=== PATIENT | female | born 1965 | race American Indian/Alaskan Native ===

== ENCOUNTER 2021-08-07 09:25 | Emergency (ER) | payer OTHER ==
[2021-08-07 09:36] VITALS: BP 123/69
--- NOTE | 2021-08-07 09:54 | Emergency Department Report ---
ED Chest Pain HPI - General Chief Complaint: Dizziness Stated Complaint: SHARP LT PAINS SHOULDER Time Seen by Provider: 08/07/21 09:31 Source: patient Mode of arrival: Ambulatory Limitations: No Limitations - History of Present Illness Initial Comments: CC: "My whole left side hurts." HPI: THis is a 56 yo female with hx of enlarged thyroid and stroke like episode in 2017 who presents with dizzness, left sided pain. Patient's symptoms began one week ago. She has pain at the left neck, left chest, left arm, left leg. She has intermittent squeezing chest pain. Moderate in severity. Episodes last several minutes. No assoication with exertion on eating. She has a knot at her left elbow. No trauma. No family hx of heart disease. She stopped smoking cigarettes one year ago. In [place] [id number], patient had right-sided weakness. She required rehabilitation in facility for [address] scan she did not have a stroke at that time. MD Complaint: chest pain -: Gradual, week(s) Onset: during rest (1 week) Pain Location: left chest Pain Radiation: LUE, neck Severity: moderate Quality: squeezing Consistency: intermittent Improves With: nothing Worsens With: nothing Treatments Prior to Arrival: none - Related Data Allergies Allergy/AdvReac Type Severity Reaction Status Date / Time No Known Allergies Allergy Unverified 11/26/13 13:00 Heart Score - HEART Score History: Slightly suspicious EKG: Normal Age: 45-65 Risk factors: 1-2 risk factors Troponin: < normal limit HEART Score: 2 - EKG Read Time Time EKG Completed: 10:10 EKG Read Time: 10:22 - Critical Actions Critical Actions: 0-3 pts:0.9-1.7%risk of adverse cardiac event.Candidate for discharge ED Review of Systems ROS: Stated complaint: SHARP LT PAINS SHOULDER Other details as noted in HPI Comment: All other systems reviewed and negative Constitutional: denies: chills, fever, malaise Cardiovascular: chest pain Gastrointestinal: denies: abdominal pain, nausea, vomiting Skin: lesions ED Past Medical Hx - Past Medical History Previous Medical History?: No - Surgical History Past Surgical History?: Yes Additional Surgical History: - Social History Smoking Status: Former Smoker Substance Use Type: Marijuana ED Physical Exam - General Limitations: No Limitations General appearance: alert, in no apparent distress - Head Head exam: Present: atraumatic, normocephalic - Eye Eye exam: Present: normal appearance - ENT ENT exam: Present: mucous membranes moist - Neck Neck exam: Present: normal inspection, full ROM - Respiratory Respiratory exam: Present: normal lung sounds bilaterally. Absent: respiratory distress, wheezes, rales, rhonchi, stridor - Cardiovascular Cardiovascular Exam: Present: regular rate, normal rhythm, normal heart sounds. Absent: systolic murmur, diastolic murmur, rubs, gallop - GI/Abdominal GI/Abdominal exam: Present: soft, normal bowel sounds. Absent: distended, tenderness, guarding, rebound - Extremities Exam Extremities exam: Present: normal inspection - Expanded Upper Extremity Exam Left Shoulder Exam: Present: normal inspection, full ROM Upper Arm exam: Present: normal inspection, full ROM Elbow exam: Present: full ROM, tenderness, other (hard nodular lesion 1.5 cm at the medial antecubital region left elbow). Absent: swelling, laceration, ecchymosis Forearm Wrist exam: Present: normal inspection, full ROM. Absent: tenderness, swelling Hand Wrist exam: Present: normal inspection, full ROM - Back Exam Back exam: Present: normal inspection - Neurological Exam Neurological exam: Present: alert, oriented X3 - Psychiatric Psychiatric exam: Present: normal affect, normal mood - Skin Skin exam: Present: warm, dry, intact, normal color. Absent: rash ED Course Vital Signs 08/07/21 09:31 Temperature 98.7 F Pulse Rate 73 Respiratory 16 Rate Blood Pressure 123/69 [Left] O2 Sat by Pulse 96 Oximetry ED Medical Decision Making - Lab Data Result diagrams: 08/07/21 10:04 08/07/21 10:04 - EKG Data -: EKG Interpreted by Fl EKG shows normal: sinus rhythm, axis, intervals, QRS complexes, ST-T waves Rate: normal - EKG Data Interpretation: normal EKG 08/07/21 09:54 EKG obtained 1010 EKG interpreted by sd Rate 65 bpm normal axis normal intervals no ST elevation nonischemic T wave pattern normal EKG 08/07/21 10:23 - Radiology Data Radiology results: report reviewed I reviewed radiology impressions: Radiographs of the elbow left 2 view: No significant abnormality of the left elbow, Chest radiograph 2 views: No acute findings - Medical Decision Making 1. Left-sided pain: Atypical for ACS. No indication of emergent conditions such as CVA, pulmonary embolism, dissection. Differential diagnosis includes fibromyalgia cervical lumbar radiculopathy. 2. skin Nodule: cyst possible Patient referred to internal medicine physician. Critical care attestation.: If time is entered above; I have spent that time in minutes in the direct care of this critically ill patient, excluding procedure time. ED Disposition Clinical Impression: Chest pain, Cyst Disposition: HOME / SELF CARE / HOMELESS Is pt being admited?: No Does the pt Need Aspirin: No Condition: Stable Instructions: Nonspecific Chest Pain, Adult Referrals: EDUAR WARNER MD [Staff Physician] - 3-5 Days
--- NOTE | 2021-08-07 10:14 | XRay Report ---
CHEST 2 VIEWS INDICATION / CLINICAL INFORMATION: chest pain. COMPARISON: None available. FINDINGS: SUPPORT DEVICES: None. HEART / MEDIASTINUM: No significant abnormality. LUNGS / PLEURA: No significant pulmonary or pleural abnormality. No pneumothorax. ADDITIONAL FINDINGS: No significant additional findings. IMPRESSION: 1. No acute findings. Signer Name: Wilbur Gonzalez MD Signed: 08/07/2021 10:10 AM Workstation Name: [id number]
--- NOTE | 2021-08-07 10:15 | XRay Report ---
XR elbow 2V LT INDICATION / CLINICAL INFORMATION: left elbow pain nodule COMPARISON: None available. FINDINGS: BONES / JOINT(S): No acute fracture or subluxation. No significant arthritis. No significant joint ef fusion. SOFT TISSUES: No significant abnormality. No discrete mass identified. No soft tissue calcifications. ADDITIONAL FINDINGS: None. IMPRESSION: No significant abnormality of the left elbow. Signer Name: Juan Owen MD Signed: 08/07/2021 10:11 AM Workstation Name: [email or web address]
[2021-08-07 10:49] LABS: Hemoglobin 13.4 gm/dl (10.1-14.3); Red Blood Count 4.26 M/mm3 (3.65-5.03)
[2021-08-07 10:50] LABS: Basophils % (Auto) 0.6 % (0.0-1.8); Eosinophils # (Auto) 0.1 K/mm3 (0.0-0.4); Eosinophils % (Auto) 2.6 % (0.0-4.3); Lymphocytes % (Auto) 39.7 % (13.4-35.0); Mean Corpuscular HGB Conc 34 % (30-34); Mean Corpuscular Volume 94 fl (79-97); Monocytes # (Auto) 0.4 K/mm3 (0.0-0.8); Monocytes % (Auto) 7.9 % (0.0-7.3); Platelet Count 331 K/mm3 (140-440); Red Cell Distribution Width 13.4 % (13.2-15.2)
[2021-08-07 11:25] LABS: Alanine Aminotransferase 10 units/L (7-56); Albumin 4.3 g/dL (3.9-5); BUN/Creatinine Ratio 13; Blood Urea Nitrogen 12 mg/dL (7-17); Calcium 9.8 mg/dL (8.4-10.2); Hemolysis Index 3
[2021-08-07] MEDS ORDERED: KETOROLAC 30 MG/1 ML INJ IM ONE (11:46)
--- NOTE | 2021-08-11 10:53 | Electrocardiograph Report ---
[facility] Test Date: 2021-08-07 Test Time: 10:10:36 Pat Name: MIGUEL AGUAYO Department: Room: Gender: F Cvt Rn: LAYA : 1965 Requested By: JASSI CHILDRESS Order Number: [id number] Reading MD: Indio Connell Measurements Intervals [place] Rate: 65 P: 73 [place]: 149 QRS: 73 QRSD: 85 T: 55 QT: 400 QTc: 418 Interpretive Statements Sinus rhythm Probable left atrial enlargement No previous ECG available for comparison Electronically Signed On 08-11-2021 10:52:55 EDT by Indio Connell
== END 2021-08-07 12:13 | disposition home or self-care (01) ==
LOC: ED 09:25
DX: R07.9 Chest pain, unspecified (principal); L72.8 Other follicular cysts of the skin and subcutaneous tissue; F12.90 Cannabis use, unspecified, uncomplicated
CPT/HCPCS: 36415; 71046; 73070; 80053; 84484; 85025; 93005; 96372; 99284; J1885